=== PATIENT | male | born 1965 | race Caucasian/White ===

== ENCOUNTER 2025-02-26 20:50 | Emergency (ER) | payer OTHER ==
[2025-02-26 21:00] VITALS: BMI 26.4
[2025-02-26] MEDS ORDERED: ACETAMINOPHEN 500 MG TABLET (FP) ONE (21:42)
[2025-02-26] MEDS ORDERED: DIPHTH,PERTUSS(ACELL),TET 0.5 ML DISP.SYRIN IM ONE ×2 (21:43→21:54)
[2025-02-26] MEDS: ACETAMINOPHEN 500 MG TABLET (FP) PO ONE (21:47)
[2025-02-26] MEDS: DIPHTH,PERTUSS(ACELL),TET 0.5 ML DISP.SYRIN IM ONE (21:48)
[2025-02-27] MEDS: LIDOCAINE 5% TOPICAL PATCH TP ONE (00:30)
[2025-02-27 00:45] VITALS: BP 125/74; PULSE 55; RESP 16; TEMP 97.3
[2025-02-27] MEDS ORDERED: KETOROLAC TROMETHAMINE 15 MG/ML VIAL ONE (01:02)
[2025-02-27] MEDS: KETOROLAC TROMETHAMINE 15 MG/ML VIAL IM ONE (01:05)
[2025-02-27] MEDS ORDERED: LIDOCAINE PATCH REMOVAL MC SCH (10:00)
== END 2025-02-27 01:15 | disposition home or self-care (01) ==
LOC: JER 20:50
PROC: 3E0234Z Introduction of Serum, Toxoid and Vaccine into Muscle, Percutaneous Approach (ICD-10-PCS; 2025-02-26)
PROC: 3E0233Z Introduction of Anti-inflammatory into Muscle, Percutaneous Approach (ICD-10-PCS; principal; 2025-02-27)
DX: S80.211A Abrasion, right knee, initial encounter (principal); M54.2 Cervicalgia; M54.50 Low back pain, unspecified; R10.11 Right upper quadrant pain; R10.30 Lower abdominal pain, unspecified; H53.8 Other visual disturbances; Z23 Encounter for immunization; V23.49XA Other motorcycle driver injured in collision with car, pick-up truck or van in traffic accident, initial encounter; Y92.410 Unspecified street and highway as the place of occurrence of the external cause
CPT/HCPCS: 70450-TC; 71046-TC-FY; 72125-TC; 73560-TC-RT-FY; 90715; 99285-25